=== PATIENT | female | born 1970 | race Two or more races ===

== ENCOUNTER 2024-09-02 16:43 | Emergency (ER) | payer OTHER ==
[~2024-09-02] VITALS: Ht 167.6 cm; Wt 97.1 kg
[~2024-09-02 16:43] MED LIST: GILTUSS TR TAB1 EACH PO; KETO10TA2 PO; NEURONTIN600 MG; ORPH100T; ORPH100T PO
[2024-09-02] MEDS ORDERED: METFORMIN HCL500 M3 PO (17:29)
[2024-09-02] MEDS ORDERED: MOUNJARO5 MG/0.5 M SQ (17:29)
[2024-09-02] MEDS ORDERED: ATORVASTATIN CA20 MG PO (17:30)
[2024-09-02 22:32] LABS: URINE APPEARANCE Clear; URINE BILIRRUBIN Negative (NEGATIVE); URINE BLOOD Negative; URINE COLOR Yellow; URINE GLUCOSE Negative (NEGATIVE); URINE KETONE Negative (NEGATIVE); URINE LEUKOCYTE Trace; URINE NITRATE Negative; URINE PROTEIN Negative (NEGATIVE); URINE UROBILINOGEN 0.2 E.U./dl
[2024-09-02 22:36] LABS: URINE WBC 67.7 uL (0.0-23.2)
[2024-09-02 22:40] LABS: BASO % 0.7 % (0.1-1.2); EOS # 0.07 (0.04-0.54); HEMATOCRIT 38.3 % (34.1-44.9); HEMOGLOBIN 13.5 g/dL (11.2-15.7); LYMPH # 2.46 (1.18-3.74); LYMPH % 35.5 % (19.3-53.1); MEAN CORPUSCULAR HEMOGLOBIN 29.8 pg (25.6-32.2); MONO # 0.43 (0.24-0.82); MONO % 6.2 % (4.7-12.5); NEUT % 56.5 % (34.0-71.1); PLATELET COUNT 253 K/uL (163-369); RED BLOOD COUNT 4.53 M/uL (3.93-5.22)
[2024-09-02 22:57] LABS: BILIRUBIN TOTAL 0.42 mg/dL (0.3-1.2); CALCIUM 9.3 mg/dL (8.5-10.1); CREATININE SERUM 1.05 mg/dL (0.55-1.02); GFR 55.03; GLOBULINA 3.5 G/DL (2.4-3.5); POTASSIUM 3.99 mEq/L (3.5-5.1); TOTAL PROTEIN 7.5 gm/dL (6.4-8.2); URINE CAST 0.44 uL (0.0-1.40)
[2024-09-02 23:03] LABS: COVID-19 AG NEGATIVE (NEGATIVE)
[2024-09-02 23:18] LABS: INFLUENZA A AG NEGATIVE (NEGATIVE); INFLUENZA B AG NEGATIVE (NEGATIVE)
[2024-09-02] MEDS ORDERED: MACROBID 100 M100 MG PO (23:42)
== END 2024-09-03 00:08 | disposition home or self-care (01) ==
LOC: ER 17:18
PROVIDERS: Preventive Medicine Public Health & General Preventive Medicine
DX: R51.9 Headache, unspecified (principal); Z20.822 Contact with and (suspected) exposure to COVID-19; E11.9 Type 2 diabetes mellitus without complications; Z88.6 Allergy status to analgesic agent